=== PATIENT | male | born 1960 | race Caucasian/White ===

== ENCOUNTER → 2024-01-30 06:30 | Day surgery (SDC) | payer BC, SELFPAY ==
[2024-01-30 08:38] LABS: Glucose - Point of Care 147 mg/dl (70-99)
== END ==
LOC: GI 06:30
PROVIDERS: ATTENDING PHYSICIAN Internal Medicine Gastroenterology
DX: Z12.11 Encounter for screening for malignant neoplasm of colon (principal); K57.30 Diverticulosis of large intestine without perforation or abscess without bleeding; K64.0 First degree hemorrhoids; D12.2 Benign neoplasm of ascending colon; D12.3 Benign neoplasm of transverse colon; D12.5 Benign neoplasm of sigmoid colon; D12.4 Benign neoplasm of descending colon; Z86.010 Personal history of colon polyps
CPT/HCPCS: 45385; 45381; 45380; 88305; 82962

== ENCOUNTER 2025-02-26 06:19 | Day surgery (SDC) | payer OTHER, SELFPAY ==
[2025-02-26 10:34] LABS: Glucose - Point of Care 183 mg/dl (70-99)
== END 2025-02-26 12:33 | disposition home or self-care (01) ==
LOC: GI 06:19
PROVIDERS: ATTENDING PHYSICIAN Internal Medicine Gastroenterology
DX: Z12.11 Encounter for screening for malignant neoplasm of colon (principal); K57.30 Diverticulosis of large intestine without perforation or abscess without bleeding; K64.9 Unspecified hemorrhoids; D12.3 Benign neoplasm of transverse colon; K63.5 Polyp of colon; Z98.890 Other specified postprocedural states; Z86.0100 Personal history of colon polyps, unspecified
CPT/HCPCS: 45380; 82962; 88305